=== PATIENT | female | born 1970 | race Caucasian/White ===

== ENCOUNTER 2020-07-30 08:26 | Outpatient (CLI) | payer BC, SELFPAY ==
--- NOTE | ~2020-07-30 | XR_ITS ---
XR abdomen/kub 1V 07/30/2020 08:47 Indication: Ureteral stone Procedure: KUB Comparison: CT dated 07/30/2020 Findings: There are calcifications in the pelvis corresponding to the bladder stones seen on CT. Lydia l gas pattern is nonobstructive. There are cholecystectomy clips. No acute osseous abnormality. Impression: 1: Bladder stones. Reviewed, dictated and finalized at location B. Impression: 1: Bladder stones.
--- NOTE | ~2020-07-30 | CT_ITS ---
EXAMINATION: CT abdomen pelvis wo con DATE: 07/30/2020 08:57 INDICATION: Left flank pain. Kidney stone. TECHNIQUE: Computed tomography (CT) of the abdomen and pelvis was performed without intravenous contr ast. The dose-length product was 218.33 mGy-cm. Automated exposure control and iterative reconstructi on technique were employed. COMPARISON: None. FINDINGS: Lung bases are unremarkable. There is a 2.4 cm partially visualized left breast mass. No si gnificant pleural or pericardial effusion. Heart size normal. There are dependent bladder stones. Mil d left hydronephrosis, likely secondary to previous ureteral stone. Bladder is unremarkable. There is a 1.4 cm subcutaneous nodule right anterior abdominal wall colonic diverticulosis without diverticul itis. There are cholecystectomy clips. No lymphadenopathy. IMPRESSION: 1. Bladder stones. 2: Mild left ureterectasis, likely from recently passed stone. 3: Left breast mass measuring 2.4 cm, partially visualized. Diagnostic mammogram and left breast ultr asound recommended. Reviewed, dictated and finalized at location B. IMPRESSION: 1. Bladder stones. 2: Mild left ureterectasis, likely from recently passed stone. 3: Left breast mass measuring 2.4 cm, partially visualized. Diagnostic mammogra m and left breast ultrasound recommended.
== END 2020-07-30 08:27 | disposition home or self-care (01) ==
PROVIDERS: PCP Internal Medicine; Visit Provider Urology
DX: N20.1 Calculus of ureter (principal); N21.0 Calculus in bladder; N13.4 Hydroureter; N63.20 Unspecified lump in the left breast, unspecified quadrant
CPT/HCPCS: 74018; 74176